=== PATIENT | male | born 1950 | race Caucasian/White ===

== ENCOUNTER 2023-09-08 23:48 | Emergency (ER) | payer MEDICARE, OTHER ==
[~2023-09-08 23:48] MED LIST: Iopamidol 370 76% 100 ML VIAL ONE
[2023-09-09 00:34] LABS: Band 4 % (5-11); Hematocrit 24.7 % (42.0-52.0); Hemoglobin 8.2 g/dL (14.0-18.0); Lymphocytes 8 % (21-51); MDiff Complete? YES; Mean Corpuscular HGB CONC 33.4 g/dL (32.0-36.0); Mean Corpuscular Hemoglobin 30.1 pg (27.0-31.0); Mean Corpuscular Volume 90.1 fl (78.0-98.0); Mean Platelet Volume 7.1 fL (7.4-10.4); Monocytes 7 % (0-10); Neutrophil 81 % (42-75); Platelet Count 328 10x3/uL (130-400); Red Blood Cell (RBC) Count 2.74 mill/uL (4.70-6.10); White Blood Cell (WBC) Count 9.6 10x3/uL (4.8-10.8)
[2023-09-09 00:42] LABS: ALT (SGPT) 16 U/L (8-55); AST (SGOT) 21 U/L (5-34); Albumin 3.1 g/dL (3.4-4.8); Alkaline Phosphatase 65 U/L (40-110); Anion Gap 17 mmol/L (10-20); BUN (Urea Nitrogen) 24 mg/dL (8.4-25.7); Bilirubin, Total 0.4 mg/dL (0.2-1.2); Calc. Creatinine Clearance 0 mL/min (70-130); Chloride 102 mmol/L (98-107); Estimated GFR 80; Globulin 3.7 g/dL (2.4-3.5); Glucose 135 mg/dL (83-110); Magnesium 1.8 mg/dL (1.6-2.6); Potassium 2.8 mmol/L (3.5-5.1); Protein, Total 6.8 g/dL (5.8-8.1); Sodium 139 mmol/L (136-145)
[2023-09-09 00:45] LABS: Troponin I 0.184 ng/mL (< 0.028)
[2023-09-09 00:49] LABS: Carbon Dioxide 23 mmol/L (23-31)
[2023-09-09] MEDS ORDERED: Potassium Chloride 20 MEQ/100 ML PREMIX BAG ONE (01:12)
[2023-09-09] MEDS ORDERED: Aspirin 325 MG TAB ONE (01:45)
[2023-09-09] MEDS ORDERED: Vancomycin 1 GM VIAL ONE (02:30)
[2023-09-09] MEDS ORDERED: Sodium Chloride 0.9% 250 ML 250 ML ONE (02:30)
[2023-09-09] MEDS ORDERED: Sodium Chloride 0.9% 100 ML ONE (02:33)
[2023-09-09] MEDS ORDERED: Piperacillin/Tazobactam 4.5 GM VIAL ONE (02:33)
== END 2023-09-09 05:30 | disposition short-term general hospital (02) ==
LOC: MADERS 23:48
DX: N28.89 Other specified disorders of kidney and ureter (principal); E87.6 Hypokalemia; R77.8 Other specified abnormalities of plasma proteins; N12 Tubulo-interstitial nephritis, not specified as acute or chronic; I10 Essential (primary) hypertension; E03.9 Hypothyroidism, unspecified; D64.9 Anemia, unspecified; F17.220 Nicotine dependence, chewing tobacco, uncomplicated; Z79.899 Other long term (current) drug therapy
CPT/HCPCS: 71045; 74177; 80053; 83735; 83880; 84484; 85025; 87040; 87149; 93005; 96365; 96366; 96368; J2543; J3370; J3480; J3490; J7050; Q9967